=== PATIENT | male | born 1955 | race Caucasian/White ===

== ENCOUNTER 2019-10-26 09:05 | Outpatient (CLI) | payer MEDICARE, SELFPAY ==
[2019-10-26 09:29] LABS: Basophils Percent Auto 0.4 % (0.2-1.2); Eosinophils Absolute Auto 0.2 K/mm3 (0-0.3); Eosinophils Percent Auto 1.6 % (0-4.4); Hematocrit 41.8 % (42.0-52.0); Hemoglobin 14.1 g/dL (14.0-18.0); Immature Granulocyte Absolute 0.04 K/mm3 (0.00-0.031); Immature Granulocyte Percent A 0.4 % (0-0.5); Lymphocytes Absolute Auto 2.05 K/mm3 (0.9-3.2); Lymphocytes Percent Auto 19.7 % (18.3-44.2); Mean Corpuscular HGB Conc 33.7 g/dl (32-36); Mean Platelet Volume 8.7 fl (7.4-10.4); Monocytes Absolute Auto 0.8 K/mm3 (0.1-0.6); Monocytes Percent Auto 7.9 % (2.6-8.5); Neutrophils Absolute Auto 7.3 K/mm3 (1.3-6.7); Platelet Count Result 414 k/mm3 (150-375); Red Blood Count 4.86 M/mm3 (4.6-6.20); Red Cell Distribution Width 12.4 % (11.5-14.5); White Blood Count 10.4 K/mm3 (4.5-10.0)
[2019-10-26 09:38] LABS: Alanine Aminotransferase 17 U/L (4-50); Albumin Level 4.1 g/dL (3.5-5.1); Alkaline Phosphatase 65 U/L (38-126); Aspartate Amino Transferase 24 U/L (17-59); Bilirubin,Total 0.5 mg/dL (0.2-1.3); Blood Urea Nitrogen 8 mg/dL (9-20); Calcium 8.8 mg/dL (8.4-10.2); Carbon Dioxide 26 mmol/L (22-30); Chloride 91 mmol/L (98-107); Cholesterol 120 mg/dL (0-200); Estimated Glomerular Filt Rate > 60; Glucose 112 mg/dL (75-110); HDL Direct 40 mg/dL; Potassium 3.7 mmol/L (3.4-5.0); Sodium 132 mmol/L (137-145); Triglycerides 199 mg/dL (<150)
[2019-10-26 09:47] LABS: Hemoglobin A1C 5.8 % (<5.7)
[2019-10-26 09:49] LABS: LDL Cholesterol Direct 54 mg/dL
[2019-10-26 10:08] LABS: Prostate Specific Antigen 1.7 ng/mL (< OR = 4.0)
[2019-10-26 10:26] LABS: Creatinine Urine 236.6 mg/dL
[2019-10-26 10:30] LABS: MALB Creatinine Ratio 4.7 mg/g (0-30); Microalbumin Urine Random 11.1 mg/L (0-16.7)
== END 2019-10-26 09:06 | disposition home or self-care (01) ==
PROVIDERS: PCP Internal Medicine; Visit Provider Internal Medicine
DX: E78.2 Mixed hyperlipidemia (principal); Z12.5 Encounter for screening for malignant neoplasm of prostate; I10 Essential (primary) hypertension; R73.01 Impaired fasting glucose
CPT/HCPCS: 36415; 80053; 80061; 82043; 83036; 84153; 85025; G0103

== ENCOUNTER 2020-04-08 09:15 | Outpatient (CLI) | payer MEDICARE, SELFPAY ==
--- NOTE | ~2020-04-08 | CT_ITS ---
EXAMINATION: CT lung screening DATE: 04/08/2020 09:32 INDICATION: Z87.891 Personal history of nicotine dependence TECHNIQUE: Computed tomography (CT) of the chest was performed without intravenous contrast utilizing low-dose lung cancer screening protocol. Additional 3D reconstructions utilizing coronal maximum int ensity projection (MIP) were performed. Automated exposure control and iterative reconstruction techn [employer] were employed. The dose-length product was 116.42 mGy-cm. COMPARISON: 04/15/2019 FINDINGS: Mild to moderate paraseptal predominant emphysema. No interval change in a a few left upper lobe nodu les including a 4-5 mm pleural-based nodule at the posterior left apex and nearby 3 mm nodule along t he cephalad aspect of the major fissure both on image 32. Unchanged 4 mm pleural-based nodule at the junction of the lingula and left upper lobe on image 63. Tiny calcified nodule at the superior segmen t of the right lower lobe consistent with old granulomatous disease. No new or enlarging pulmonary no dules identified. No pneumonia, pulmonary edema, pleural effusion or pneumothorax. Heart size is norm al. No pericardial effusion. Atherosclerotic coronary artery calcifications. Thoracic aorta is normal in caliber. No pathologically enlarged thoracic lymphadenopathy. Visual is upper abdomen is unremark able. Moderate thoracic spondylosis. IMPRESSION: 1. No interval change in a 5 mm or smaller pulmonary nodules which are likely sequela of old granulom atous disease. Lung-RADS category 2: Benign appearance or behavior. Continue annual screening with no ncontrast low-dose chest CT in 12 months. 2. Mild to moderate emphysema. Reviewed, dictated and finalized at location A. IMPRESSION: 1. No interval change in a 5 mm or smaller pulmonary nodules which are likely s equela of old granulomatous disease. Lung-RADS category 2: Benign appearance or behavior. Continue annual screening with noncontrast low-dose chest CT in 12 m [facility]. 2. Mild to moderate emphysema.
== END 2020-04-08 09:16 | disposition home or self-care (01) ==
LOC: ANHIMG 09:18
PROVIDERS: PCP Internal Medicine; Visit Provider Internal Medicine Critical Care Medicine
DX: Z12.2 Encounter for screening for malignant neoplasm of respiratory organs (principal); Z87.891 Personal history of nicotine dependence; J43.9 Emphysema, unspecified
CPT/HCPCS: G0297

== ENCOUNTER 2020-06-04 08:43 | Outpatient (CLI) | payer MEDICARE, SELFPAY ==
[2020-06-04 09:16] LABS: Basophils Percent Auto 0.6 % (0.2-1.2); Eosinophils Absolute Auto 0.1 K/mm3 (0-0.3); Hematocrit 43.3 % (42.0-52.0); Hemoglobin 14.8 g/dL (14.0-18.0); Immature Granulocyte Absolute 0.01 K/mm3 (0.00-0.031); Immature Granulocyte Percent A 0.1 % (0-0.5); Lymphocytes Absolute Auto 2.37 K/mm3 (0.9-3.2); Lymphocytes Percent Auto 34.4 % (18.3-44.2); Mean Corpuscular HGB Conc 34.2 g/dl (32-36); Mean Corpuscular Hemoglobin 29.8 pg (26-34); Mean Corpuscular Volume 87.1 fl (80-100); Mean Platelet Volume 9.4 fl (7.4-10.4); Monocytes Absolute Auto 0.6 K/mm3 (0.1-0.6); Monocytes Percent Auto 8.6 % (2.6-8.5); Neutrophils Absolute Auto 3.7 K/mm3 (1.3-6.7); Neutrophils Percent Auto 54.3 % (45.5-73.1); Platelet Count Result 289 k/mm3 (150-375); Red Blood Count 4.97 M/mm3 (4.6-6.20); Red Cell Distribution Width 12.6 % (11.5-14.5); White Blood Count 6.9 K/mm3 (4.5-10.0)
[2020-06-04 09:32] LABS: Alanine Aminotransferase 16 U/L (4-50); Albumin Level 4.3 g/dL (3.5-5.1); Alkaline Phosphatase 51 U/L (38-126); Anion Gap 7 mmol/L (8-16); Aspartate Amino Transferase 29 U/L (17-59); Bilirubin,Total 0.8 mg/dL (0.2-1.3); Blood Urea Nitrogen 10 mg/dL (9-20); Calcium 8.9 mg/dL (8.4-10.2); Carbon Dioxide 31 mmol/L (22-30); Chloride 95 mmol/L (98-107); Cholesterol 119 mg/dL (0-200); Estimated Glomerular Filt Rate > 60; Glucose 101 mg/dL (75-110); HDL Direct 36 mg/dL; Sodium 133 mmol/L (137-145); Triglycerides 227 mg/dL (<150)
[2020-06-04 09:43] LABS: LDL Cholesterol Direct 53 mg/dL
[2020-06-04 09:46] LABS: Creatinine Urine 147.2 mg/dL
[2020-06-04 10:09] LABS: MALB Creatinine Ratio < 4.1 mg/g (0-30); Microalbumin Urine Random < 6.0 mg/L (0-16.7)
[2020-06-04 11:07] LABS: Hemoglobin A1C 5.6 % (<5.7)
== END 2020-06-04 08:44 | disposition home or self-care (01) ==
LOC: ANHLAB 08:47
PROVIDERS: PCP Internal Medicine; Visit Provider Internal Medicine
DX: R73.01 Impaired fasting glucose (principal); I10 Essential (primary) hypertension; E78.2 Mixed hyperlipidemia
CPT/HCPCS: 36415; 80053; 80061; 82043; 83036; 85025

== ENCOUNTER 2020-11-10 09:01 | Outpatient (CLI) | payer MEDICARE, SELFPAY | END 2020-11-10 09:02 | disposition home or self-care (01) | LOC: ANHCOVIDVC 09:01 | PROVIDERS: PCP Internal Medicine | DX: Z23 Encounter for immunization (principal) | CPT/HCPCS: 0001A; 91300 ==

== ENCOUNTER 2020-12-01 09:00 | Outpatient (CLI) | payer MEDICARE, SELFPAY | END 2020-12-01 09:01 | LOC: ANHCOVIDVC 09:00 | PROVIDERS: PCP Internal Medicine | DX: Z23 Encounter for immunization (principal) | CPT/HCPCS: 0002A; 91300 ==

== ENCOUNTER 2020-12-02 10:04 | Outpatient (CLI) | payer MEDICARE, SELFPAY ==
[2020-12-02 10:57] LABS: Hemoglobin A1C 5.5 % (<5.7)
[2020-12-02 11:03] LABS: Alanine Aminotransferase 12 U/L (4-50); Albumin Level 4.4 g/dL (3.5-5.1); Alkaline Phosphatase 54 U/L (38-126); Anion Gap 7 mmol/L (8-16); Aspartate Amino Transferase 25 U/L (17-59); Bilirubin,Total 0.8 mg/dL (0.2-1.3); Blood Urea Nitrogen 9 mg/dL (9-20); Calcium 8.9 mg/dL (8.4-10.2); Carbon Dioxide 29 mmol/L (22-30); Chloride 98 mmol/L (98-107); Cholesterol 131 mg/dL (0-200); Estimated Glomerular Filt Rate > 60; Glucose 95 mg/dL (75-110); HDL Direct 39 mg/dL; Sodium 134 mmol/L (137-145); Triglycerides 163 mg/dL (<150)
[2020-12-02 11:14] LABS: LDL Cholesterol Direct 61 mg/dL
[2020-12-02 11:34] LABS: MALB Creatinine Ratio 13.6 mg/g (0-30); Microalbumin Urine Random < 6.0 mg/L (0-16.7)
[2020-12-02 11:34] LABS: Prostate Specific Antigen 1.8 ng/mL (< OR = 4.0); Thyroid Stimulating Hormone 0.749 uIU/mL (0.465-4.680)
[2020-12-02 11:35] LABS: Vitamin D 25 Hydroxy 35.5 ng/mL
== END 2020-12-02 10:05 | disposition home or self-care (01) ==
PROVIDERS: PCP Internal Medicine; Visit Provider Internal Medicine
DX: E55.9 Vitamin D deficiency, unspecified (principal); E78.2 Mixed hyperlipidemia; R73.01 Impaired fasting glucose; Z72.0 Tobacco use; Z12.5 Encounter for screening for malignant neoplasm of prostate
CPT/HCPCS: 36415; 80053; 80061; 82043; 82306; 83036; 84153; 84443; G0103

== ENCOUNTER 2020-12-16 09:24 | Outpatient (CLI) | payer MEDICARE, SELFPAY ==
--- NOTE | ~2020-12-16 | US_ITS ---
EXAMINATION: US aorta [facility] DATE: 12/16/2020 09:55 INDICATION: Abdominal aortic aneurysm screening. TECHNIQUE: Grayscale, color Doppler, and pulsed Doppler images of the aorta and common iliac arteries were obtained. COMPARISON: Chest CT 04/08/2020 FINDINGS: The aorta is normal in caliber. The right common iliac artery is normal in caliber. The left common i liac artery is normal in caliber. IMPRESSION: 1. No abdominal aortic aneurysm. Reviewed, dictated and finalized at location B.
== END 2020-12-16 09:25 | disposition home or self-care (01) ==
PROVIDERS: PCP Internal Medicine; Visit Provider Internal Medicine
DX: Z72.0 Tobacco use (principal)
CPT/HCPCS: 76706

== ENCOUNTER 2021-05-18 07:58 | Outpatient (CLI) | payer MEDICARE, SELFPAY ==
--- NOTE | ~2021-05-18 | CT_ITS ---
EXAMINATION: CT lung screening DATE: 05/18/2021 08:18 INDICATION: Personal history of nicotine dependence TECHNIQUE: Computed tomography (CT) of the chest was performed without intravenous contrast. The dose -length product was 82.38 mGy-cm. Automated exposure control and iterative reconstruction technique w ere employed. COMPARISON: CT dated 04/08/2020 FINDINGS: Heart size is normal. No significant pleural or pericardial effusion. Mildly enlarged right paratracheal lymph node measures 1 cm, likely reactive. There is mild atherosclerosis. There is a lo w-density lesion in the liver, likely benign cyst or hemangioma. There are reticulonodular densities of the upper lobes superimposed on emphysema all nodules measure 4 mm or less. Largest nodule in the left upper lobe, image 70. No endobronchial lesions. There are calcified granulomas in the right lowe r lobe. Mild thoracic spondylosis with accentuated kyphosis. IMPRESSION: 1. Lung-RADS category 2: Benign appearance or behavior. Continue annual screening with noncontrast lo w-dose chest CT in 12 months. Reviewed, dictated and finalized at location A. IMPRESSION: 1. Lung-RADS category 2: Benign appearance or behavior. Continue annual screeni ng with noncontrast low-dose chest CT in 12 months.
== END 2021-05-18 07:59 | disposition home or self-care (01) ==
LOC: ANHIMG 08:00
PROVIDERS: PCP Internal Medicine; Visit Provider Internal Medicine Critical Care Medicine
DX: Z87.891 Personal history of nicotine dependence (principal)
CPT/HCPCS: 71271

== ENCOUNTER 2021-06-08 08:59 | Outpatient (CLI) | payer MEDICARE, SELFPAY ==
[2021-06-08 09:28] LABS: Hematocrit 42.8 % (42.0-52.0); Hemoglobin 14.9 g/dL (14.0-18.0); Mean Corpuscular HGB Conc 34.8 g/dl (32-36); Mean Corpuscular Hemoglobin 30.2 pg (26-34); Mean Corpuscular Volume 86.6 fl (80-100); Mean Platelet Volume 8.8 fl (7.4-10.4); Platelet Count Result 299 k/mm3 (150-375); Red Blood Count 4.94 M/mm3 (4.6-6.20); Red Cell Distribution Width 12.8 % (11.5-14.5); White Blood Count 8.1 K/mm3 (4.5-10.0)
[2021-06-08 10:17] LABS: Cholesterol 112 mg/dL (0-200); HDL Direct 39 mg/dL; Triglycerides 153 mg/dL (<150)
[2021-06-08 10:29] LABS: LDL Cholesterol Direct 50 mg/dL
[2021-06-08 10:41] LABS: Hemoglobin A1C 5.6 % (<5.7)
[2021-06-08 11:08] LABS: Creatinine Urine 270.7 mg/dL
[2021-06-08 11:13] LABS: MALB Creatinine Ratio 4.3 mg/g (0-30); Microalbumin Urine Random 11.6 mg/L (0-16.7)
== END 2021-06-08 09:00 | disposition home or self-care (01) ==
PROVIDERS: PCP Internal Medicine; Visit Provider Internal Medicine
DX: E78.2 Mixed hyperlipidemia (principal); F41.1 Generalized anxiety disorder; R73.01 Impaired fasting glucose
CPT/HCPCS: 36415; 80061; 82043; 83036; 85027

== ENCOUNTER → 2021-06-16 08:36 | Outpatient (CLI) | payer MEDICARE, SELFPAY ==
--- NOTE | ~2021-06-16 | XR_ITS ---
EXAMINATION: XR lumbar spine min 4V DATE: 06/16/2021 08:59 INDICATION: Unspecified osteoarthritis TECHNIQUE: Anteroposterior, lateral, and bilateral oblique views of the lumbar spine, and cone-down l ateral view of the lumbosacral junction were obtained. COMPARISON: 11/11/2013 FINDINGS: There has been interval anterior and posterior fusion at L5-S1. There are 4 mm of unchanged anterolisthesis of L5 on S1. There are 4 mm of stable retrolisthesis of L4 on L5. The vertebral body heights are maintained. There is moderate loss of intervertebral disc space height at L3-4 and L4-5 and mild loss of intervertebral disc space height at L2-3. Small degenerative osteophytes project fro m the anterior endplates of multiple vertebral bodies. Calcified atherosclerosis is noted. There is n o fracture. Mild osteoarthritis is noted in the hips. IMPRESSION: 1. Moderate lumbar spondylosis with interval anterior and posterior fusion at L5-S1 but otherwise no significant interval change. Reviewed, dictated and finalized at location A. IMPRESSION: 1. Moderate lumbar spondylosis with interval anterior and posterior fusion at L 5-S1 but otherwise no significant interval change.
--- NOTE | ~2021-06-16 | XR_ITS ---
EXAMINATION: XR hand LT min 3V, XR hand RT min 3V DATE: 06/16/2021 08:58 INDICATION: Unspecified osteoarthritis at the bilateral hands with joint pain at the left hand metaca rpophalangeal joints TECHNIQUE: 1. Posteroanterior, oblique and lateral views of the left hand were obtained. 2. Posteroanterior, oblique and lateral views of the right hand were obtained. COMPARISON: None. FINDINGS: Ulnar minus variance measuring 2 mm on the left and 3 mm on the right. Hyperextension at the bilatera l third and fourth proximal interphalangeal joints and mild boutonniere deformity at the right fifth digit with hyperextension at the fifth distal interphalangeal joint. There is a small likely fixation pin fragment at the proximal aspect of the right hamate. There is widening of the right scapholunate interval with likely secondary advanced osteoarthritis at the right radiocarpal joint with osteolysi s along the radial side of the lunate and the proximal pole of the scaphoid. There is proximal migrat ion of the lunate with moderate osteoarthritis at the right midcarpal joint. Additional mild to moder ate osteoarthritis at the right second and left third distal interphalangeal joints and mild osteoart hritis at the bilateral triscaphe, first carpometacarpal and multiple metacarpophalangeal and remaini ng interphalangeal joints. IMPRESSION: 1. 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 2. Additional mild to moderate polyarticular osteoarthritis and hyperflexion deformities of multiple digits as detailed above Reviewed, dictated and finalized at location A. IMPRESSION: 1. 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 2. Additional mild to moderate polyarticular osteoarthritis and hyperflexion de formities of multiple digits as detailed above
== END ==
PROVIDERS: PCP Internal Medicine; Visit Provider Internal Medicine
DX: M47.816 Spondylosis without myelopathy or radiculopathy, lumbar region (principal); Z98.1 Arthrodesis status; M47.817 Spondylosis without myelopathy or radiculopathy, lumbosacral region; M19.042 Primary osteoarthritis, left hand; M19.041 Primary osteoarthritis, right hand; M18.0 Bilateral primary osteoarthritis of first carpometacarpal joints
CPT/HCPCS: 72110; 73130

== ENCOUNTER 2021-06-30 08:57 | Outpatient (CLI) | payer MEDICARE, SELFPAY ==
[2021-06-30 10:21] LABS: Erythrocyte Sedimentation Rate 20 mm/hr (0-20)
[2021-06-30 11:29] LABS: Rheumatoid Factor < 8.6 IU/ML (<12)
[2021-07-03 11:11] LABS: CRP, High Sensitivity 6.6 mg/L (***)
[2021-07-04 09:15] LABS: Anti Cyclic Citrullinated Pept <16 Units (<20)
== END 2021-06-30 08:58 | disposition home or self-care (01) ==
LOC: ANHLAB 08:58
PROVIDERS: PCP Internal Medicine; Visit Provider Internal Medicine
DX: M13.80 Other specified arthritis, unspecified site (principal)
CPT/HCPCS: 36415; 85652; 86038; 86141; 86200; 86430

== ENCOUNTER 2021-09-16 09:21 | Outpatient (CLI) | payer MEDICARE, SELFPAY ==
--- NOTE | 2021-09-16 11:00 | NEURO_ITS ---
Impression: # Complains of pain and numbness of hands. # Mild left Carpal Tunnel Syndrome. # Evolving right Carpal Tunnel Syndrome. # Bilateral ulnar neuropathy across the elbows. # Needle/EMG exam mildly abnormal in 1st DI. Nerve Conduction Studies Anti Sensory Summary Table Stim Site NR Peak (ms) P-T Amp (?V) Site1 Site2 Delta-P (ms) Dist (cm) Rafael (m/s) Left Median Anti Sensory (2-3nd Digit) Wrist 3.8 83.3 Wrist 2-3nd Digit 3.8 14.0 37 Wrist 3.8 92.3 Wrist 2-3nd Digit 3.8 14.0 37 Right Median Anti Sensory (2-3nd Digit) Wrist 3.5 94.3 Wrist 2-3nd Digit 3.5 14.0 40 Wrist 3.4 90.4 Wrist 2-3nd Digit 3.5 14.0 40 Left Radial Anti Sensory (Base 1st Digit) Wrist 2.2 32.4 Wrist Base 1st Digit 2.2 0.0 Right Radial Anti Sensory (Base 1st Digit) Wrist 2.4 27.6 Wrist Base 1st Digit 2.4 0.0 Left Ulnar Anti Sensory (5th Digit) Wrist 3.2 65.5 Wrist 5th Digit 3.2 14.0 44 Right Ulnar Anti Sensory (5th Digit) Wrist 2.9 54.9 Wrist 5th Digit 2.9 14.0 48 Motor Summary Table Stim Site NR Onset (ms) O-P Amp (mV) Site1 Site2 Delta-0 (ms) Dist (cm) Rafael (m/s) Left Median Motor (Abd Poll Brev) Wrist 4.5 2.2 Elbow Wrist 4.8 26.0 54 Elbow 9.3 4.7 Right Median Motor (Abd Poll Brev) Wrist 4.1 7.4 Elbow Wrist 4.7 24.0 51 Elbow 8.8 4.1 Left Ulnar Motor (Abd Dig Minimi) Wrist 2.9 6.7 A Elbow Wrist 5.8 26.0 45 A Elbow 8.7 5.6 B Elbow Wrist 3.7 21.0 57 B Elbow 6.6 6.1 Right Ulnar Motor (Abd Dig Minimi) Wrist 3.1 7.0 A Elbow Wrist 5.9 24.0 41 A Elbow 9.0 6.4 B Elbow Wrist 3.5 18.0 51 B Elbow 6.6 8.3 F Wave Studies NR F-Lat (ms) L-R F-Lat (ms) Left Median (Mrkrs) (Abd Poll Brev) 29.59 0.70 Right Median (Mrkrs) (Abd Poll Brev) 30.29 0.70 Left Ulnar (Mrkrs) (Abd Dig Min) 30.28 0.58 Right Ulnar (Mrkrs) (Abd Dig Min) 30.86 0.58 EMG Side Muscle Nerve Root Ins Act Fibs Amp Dur Recrt Comment Right 1stDorInt Ulnar C8-T1 Nml Nml Nml >12ms Reduced Right Ext Indicis Radial (Post Int) C7-8 Nml Nml Nml Nml Nml Right Ext Digitorum Radial (Post Int) C7-8 Nml Nml Nml Nml Nml Right BrachioRad Radial C5-6 Nml Nml Nml Nml Nml Right PronatorTeres Median C6-7 Nml Nml Nml Nml Nml Right Abd Poll Brev Median C8-T1 Nml Nml Nml Nml Nml Left 1stDorInt Ulnar C8-T1 Nml Nml Nml >12ms Reduced Left Ext Indicis Radial (Post Int) C7-8 Nml Nml Nml Nml Nml Left Ext Digitorum Radial (Post Int) C7-8 Nml Nml Nml Nml Nml Left BrachioRad Radial C5-6 Nml Nml Nml Nml Nml Left PronatorTeres Median C6-7 Nml Nml Nml Nml Nml Left Abd Poll Brev Median C8-T1 Nml Nml Nml Nml Nml MTDD
== END 2021-09-16 09:22 | disposition home or self-care (01) ==
LOC: ANHNEURO 09:25
PROVIDERS: PCP Internal Medicine; Visit Provider Orthopaedic Surgery
DX: G56.03 Carpal tunnel syndrome, bilateral upper limbs (principal)
CPT/HCPCS: 95886; 95911

== ENCOUNTER 2021-12-21 08:55 | Outpatient (CLI) | payer MEDICARE, SELFPAY ==
[2021-12-21 09:28] LABS: Basophils Absolute Auto 0.1 K/mm3 (0.0-0.1); Basophils Percent Auto 0.6 % (0.2-1.2); Eosinophils Absolute Auto 0.1 K/mm3 (0-0.3); Eosinophils Percent Auto 1.4 % (0-4.4); Hematocrit 43.6 % (42.0-52.0); Hemoglobin 14.9 g/dL (14.0-18.0); Immature Granulocyte Absolute 0.02 K/mm3 (0.00-0.031); Immature Granulocyte Percent A 0.2 % (0-0.5); Lymphocytes Absolute Auto 1.57 K/mm3 (0.9-3.2); Mean Corpuscular HGB Conc 34.2 g/dl (32-36); Mean Corpuscular Hemoglobin 30.4 pg (26-34); Mean Platelet Volume 8.9 fl (7.4-10.4); Monocytes Absolute Auto 0.7 K/mm3 (0.1-0.6); Monocytes Percent Auto 7.7 % (2.6-8.5); Neutrophils Absolute Auto 6.3 K/mm3 (1.3-6.7); Neutrophils Percent Auto 72.1 % (45.5-73.1); Platelet Count Result 274 k/mm3 (150-375); Red Cell Distribution Width 13.1 % (11.5-14.5); White Blood Count 8.7 K/mm3 (4.5-10.0)
[2021-12-21 09:42] LABS: Alanine Aminotransferase 9 U/L (4-50); Albumin Level 4.3 g/dL (3.5-5.1); Alkaline Phosphatase 58 U/L (38-126); Anion Gap 6 mmol/L (8-16); Aspartate Amino Transferase 24 U/L (17-59); Bilirubin,Total 0.7 mg/dL (0.2-1.3); Blood Urea Nitrogen 9 mg/dL (9-20); Calcium 8.4 mg/dL (8.4-10.2); Carbon Dioxide 28 mmol/L (22-30); Chloride 97 mmol/L (98-107); Estimated Glomerular Filt Rate > 60; Glucose 103 mg/dL (65-110); Potassium 3.8 mmol/L (3.4-5.0); Sodium 131 mmol/L (137-145)
[2021-12-21 10:14] LABS: Thyroid Stimulating Hormone 0.996 uIU/mL (0.465-4.680)
== END 2021-12-21 08:56 | disposition home or self-care (01) ==
PROVIDERS: PCP Internal Medicine; Visit Provider Internal Medicine
DX: E78.2 Mixed hyperlipidemia (principal); F41.1 Generalized anxiety disorder; I10 Essential (primary) hypertension; J43.9 Emphysema, unspecified; M19.90 Unspecified osteoarthritis, unspecified site; Z12.5 Encounter for screening for malignant neoplasm of prostate
CPT/HCPCS: 36415; 80053; 82306; 84153; 84443; 85025; G0103

== ENCOUNTER 2022-05-19 12:31 | Outpatient (CLI) | payer MEDICARE, SELFPAY ==
--- NOTE | ~2022-05-19 | CT_ITS ---
EXAMINATION: CT lung screening DATE: 05/19/2022 13:08 INDICATION: Patient is a smoker. TECHNIQUE: Computed tomography (CT) of the chest was performed without intravenous contrast. The dose -length product was 91.05 mGy-cm. Automated exposure control and iterative reconstruction technique w ere employed. COMPARISON: CT dated 05/18/2020 FINDINGS: There is emphysema. No endobronchial lesions. No pneumothorax. There are borderline sized m ediastinal and right hilar lymph nodes, likely reactive. Small-moderate hiatal hernia. There are gall stones. There is a 1.7 cm liver cyst. Stable small bilateral pulmonary nodules measuring 4 mm or less . No new pulmonary nodules or masses. Moderate thoracic spondylosis. Stable reticulonodular densities are merely involving the upper lobes. IMPRESSION: 1. Lung-RADS category 2: Benign appearance or behavior. Continue annual screening with noncontrast lo w-dose chest CT in 12 months. Reviewed, dictated and finalized at location A. IMPRESSION: 1. Lung-RADS category 2: Benign appearance or behavior. Continue annual screeni ng with noncontrast low-dose chest CT in 12 months.
== END 2022-05-19 12:32 | disposition home or self-care (01) ==
PROVIDERS: PCP Internal Medicine; Visit Provider Physician Assistant
DX: Z12.2 Encounter for screening for malignant neoplasm of respiratory organs (principal); Z87.891 Personal history of nicotine dependence
CPT/HCPCS: 71271

== ENCOUNTER 2022-06-28 09:30 | Outpatient (CLI) | payer MEDICARE, SELFPAY ==
[2022-06-28 10:07] LABS: Alanine Aminotransferase 15 U/L (6-50); Albumin Level 4.3 g/dL (3.5-5.1); Alkaline Phosphatase 57 U/L (38-126); Anion Gap 9 mmol/L (8-16); Aspartate Amino Transferase 23 U/L (17-59); Bilirubin,Total 0.8 mg/dL (0.2-1.3); Blood Urea Nitrogen 12 mg/dL (9-20); Calcium 8.5 mg/dL (8.4-10.2); Carbon Dioxide 28 mmol/L (22-30); Chloride 94 mmol/L (98-107); Cholesterol 117 mg/dL (0-200); Estimated Glomerular Filt Rate > 60; Glucose 105 mg/dL (65-110); HDL Direct 37 mg/dL; Sodium 131 mmol/L (137-145); Triglycerides 189 mg/dL (<150)
[2022-06-28 10:18] LABS: LDL Cholesterol Direct 49 mg/dL
[2022-06-28 11:45] LABS: Vitamin D 25 Hydroxy 31.6 ng/mL
== END 2022-06-28 09:31 | disposition home or self-care (01) ==
PROVIDERS: PCP Internal Medicine; Visit Provider Nurse Practitioner
DX: E78.5 Hyperlipidemia, unspecified (principal); E55.9 Vitamin D deficiency, unspecified; R73.01 Impaired fasting glucose
CPT/HCPCS: 36415; 80053; 80061; 82306; 83036

== ENCOUNTER 2023-01-17 11:08 | Outpatient (CLI) | payer MEDICARE, SELFPAY ==
[2023-01-17 11:28] LABS: Hematocrit 45.1 % (42.0-52.0); Hemoglobin 15.3 g/dL (14.0-18.0); Mean Corpuscular HGB Conc 33.9 g/dl (32-36); Mean Corpuscular Hemoglobin 29.5 pg (26-34); Mean Corpuscular Volume 86.9 fl (80-100); Mean Platelet Volume 8.6 fl (7.4-10.4); Platelet Count Result 334 k/mm3 (150-375); Red Blood Count 5.19 M/mm3 (4.6-6.20); Red Cell Distribution Width 13.1 % (11.5-14.5); White Blood Count 9.9 K/mm3 (4.5-10.0)
[2023-01-17 11:36] LABS: Alanine Aminotransferase 18 U/L (6-50); Albumin Level 4.7 g/dL (3.5-5.1); Alkaline Phosphatase 63 U/L (38-126); Anion Gap 8 mmol/L (8-16); Aspartate Amino Transferase 25 U/L (17-59); Bilirubin,Total 0.9 mg/dL (0.2-1.3); Blood Urea Nitrogen 12 mg/dL (9-20); Calcium 8.7 mg/dL (8.4-10.2); Carbon Dioxide 31 mmol/L (22-30); Chloride 92 mmol/L (98-107); Cholesterol 104 mg/dL (0-200); Estimated Glomerular Filt Rate > 60; Glucose 106 mg/dL (65-110); HDL Direct 38 mg/dL; Hemoglobin A1C 5.8 % (<5.7); Sodium 131 mmol/L (137-145); Triglycerides 142 mg/dL (<150)
[2023-01-17 11:51] LABS: LDL Cholesterol Direct 44 mg/dL
[2023-01-17 12:08] LABS: Prostate Specific Antigen 2.7 ng/mL (< OR = 4.0)
== END 2023-01-17 11:09 | disposition home or self-care (01) ==
PROVIDERS: PCP Family Medicine; Visit Provider Family Medicine
DX: J43.9 Emphysema, unspecified (principal); I51.89 Other ill-defined heart diseases; R73.01 Impaired fasting glucose; F33.42 Major depressive disorder, recurrent, in full remission; F41.1 Generalized anxiety disorder; K21.9 Gastro-esophageal reflux disease without esophagitis; I10 Essential (primary) hypertension; M47.816 Spondylosis without myelopathy or radiculopathy, lumbar region; Z72.0 Tobacco use; Z12.5 Encounter for screening for malignant neoplasm of prostate
CPT/HCPCS: 36415; 80053; 80061; 83036; 84153; 85027; G0103

== ENCOUNTER 2023-05-22 09:34 | Outpatient (CLI) | payer MEDICARE, SELFPAY ==
--- NOTE | ~2023-05-22 | CT_ITS ---
EXAMINATION: CT lung screening DATE: 05/22/2023 09:58 INDICATION: Personal history of nicotine dependence. TECHNIQUE: Computed tomography (CT) of the chest was performed without intravenous contrast. The dose -length product was 78.80 mGy-cm. Automated exposure control and iterative reconstruction technique w ere employed. COMPARISON: CT dated 05/19/2022 FINDINGS: No significant pleural or pericardial effusion. Stable borderline size mediastinal lymph no owen, likely reactive. There is emphysema. No endobronchial lesions. No pneumothorax. No focal airspac e consolidation. Stable pulmonary nodules measuring 4 mm or less. Largest nodule in the left upper lo be, image 56. No new pulmonary nodules. Moderate thoracic spondylosis. No focal lytic or blastic lesi ons. There is atherosclerosis of the aorta and coronary arteries. Heart size is normal. Stable liver cysts. There is hiatal hernia. IMPRESSION: 1. Lung-RADS category 2: Benign appearance or behavior. Continue annual screening with noncontrast lo w-dose chest CT in 12 months. Reviewed, dictated and finalized at location B. IMPRESSION: 1. Lung-RADS category 2: Benign appearance or behavior. Continue annual screeni ng with noncontrast low-dose chest CT in 12 months.
== END 2023-05-22 09:35 | disposition home or self-care (01) ==
LOC: ANHIMG 09:36
PROVIDERS: PCP Family Medicine; Visit Provider Physician Assistant
DX: Z12.2 Encounter for screening for malignant neoplasm of respiratory organs (principal); Z87.891 Personal history of nicotine dependence
CPT/HCPCS: 71271

== ENCOUNTER 2023-06-01 09:45 | Outpatient (CLI) | payer MEDICARE, SELFPAY ==
--- NOTE | ~2023-06-01 | US_ITS ---
EXAMINATION: US scrotum doppler DATE: 06/01/2023 11:03 INDICATION: Hydrocele, unspecified. TECHNIQUE: Grayscale and Doppler ultrasound images of the testes were obtained. COMPARISON: None. FINDINGS: The right testis measures 4.7 x 1.1 x 2.8 cm. The left testis measures 3.1 x 1.5 x 2.5 cm. The left testis demonstrates heterogeneous echogenicity. There is normal vascular flow to both testes . The epididymides are not visualized. There is a large right hydrocele measuring 13.5 x 7.6 x 10.1 c m IMPRESSION: 1. Large right hydrocele. 2. Left testis smaller than the right with heterogeneous echogenicity, which may be from old injury. Reviewed, dictated and finalized at location E. IMPRESSION: 1. Large right hydrocele. 2. Left testis smaller than the right with heterogeneous echogenicity, which ma y be from old injury.
== END 2023-06-01 09:46 | disposition home or self-care (01) ==
PROVIDERS: PCP Family Medicine; Visit Provider Nurse Practitioner Family
DX: N50.89 Other specified disorders of the male genital organs (principal); N43.3 Hydrocele, unspecified
CPT/HCPCS: 76870; 93976

== ENCOUNTER 2023-07-26 11:22 | Outpatient (CLI) | payer MEDICARE, SELFPAY ==
[2023-07-26 11:54] LABS: Alanine Aminotransferase 12 U/L (6-50); Albumin Level 4.5 g/dL (3.5-5.1); Alkaline Phosphatase 63 U/L (38-126); Anion Gap 11 mmol/L (8-16); Aspartate Amino Transferase 23 U/L (17-59); Bilirubin,Total 0.7 mg/dL (0.2-1.3); Blood Urea Nitrogen 15 mg/dL (9-20); Calcium 8.8 mg/dL (8.4-10.2); Carbon Dioxide 26 mmol/L (22-30); Chloride 99 mmol/L (98-107); Estimated Glomerular Filt Rate > 60; Glucose 106 mg/dL (65-110); Potassium 3.7 mmol/L (3.4-5.0); Sodium 136 mmol/L (137-145)
[2023-07-26 11:55] LABS: Hemoglobin A1C 5.5 % (<5.7)
== END 2023-07-26 11:23 | disposition home or self-care (01) ==
PROVIDERS: PCP Family Medicine; Visit Provider Family Medicine
DX: E87.1 Hypo-osmolality and hyponatremia (principal); R73.01 Impaired fasting glucose; I10 Essential (primary) hypertension
CPT/HCPCS: 36415; 80053; 83036

== ENCOUNTER 2023-12-28 14:06 | Outpatient (CLI) | payer MEDICARE, SELFPAY ==
[2023-12-28 14:34] LABS: Hematocrit 43.2 % (42.0-52.0); Hemoglobin 14.1 g/dL (14.0-18.0); Mean Corpuscular HGB Conc 32.6 g/dl (32-36); Mean Corpuscular Hemoglobin 28.1 pg (26-34); Mean Corpuscular Volume 86.1 fl (80-100); Mean Platelet Volume 9.1 fl (7.4-10.4); Platelet Count Result 282 k/mm3 (150-375); Red Blood Count 5.02 M/mm3 (4.6-6.20); Red Cell Distribution Width 14.1 % (11.5-14.5); White Blood Count 10.4 K/mm3 (4.5-10.0)
[2023-12-28 14:45] LABS: Alanine Aminotransferase 11 U/L (6-50); Albumin Level 4.4 g/dL (3.5-5.1); Alkaline Phosphatase 73 U/L (38-126); Anion Gap 6 mmol/L (4-12); Aspartate Amino Transferase 22 U/L (17-59); Bilirubin,Total 1.1 mg/dL (0.2-1.3); Blood Urea Nitrogen 11 mg/dL (9-20); Calcium 8.8 mg/dL (8.4-10.2); Carbon Dioxide 27 mmol/L (22-30); Chloride 101 mmol/L (98-107); Cholesterol 117 mg/dL (0-200); Estimated Glomerular Filt Rate > 60; Glucose 98 mg/dL (65-110); HDL Direct 44 mg/dL; Potassium 3.9 mmol/L (3.4-5.0); Sodium 134 mmol/L (137-145); Triglycerides 101 mg/dL (<150)
[2023-12-28 14:47] LABS: Hemoglobin A1C 5.5 % (<5.7)
[2023-12-28 14:49] LABS: Urine Cotinine NEGATIVE
[2023-12-28 14:56] LABS: LDL Cholesterol Direct 65 mg/dL
== END 2023-12-28 14:07 | disposition home or self-care (01) ==
LOC: ANHLAB 14:09
PROVIDERS: PCP Family Medicine; Visit Provider Family Medicine
DX: E55.9 Vitamin D deficiency, unspecified (principal); E78.2 Mixed hyperlipidemia; E87.1 Hypo-osmolality and hyponatremia; F33.42 Major depressive disorder, recurrent, in full remission; F41.1 Generalized anxiety disorder; I10 Essential (primary) hypertension; J43.9 Emphysema, unspecified; K21.9 Gastro-esophageal reflux disease without esophagitis; K40.90 Unilateral inguinal hernia, without obstruction or gangrene, not specified as recurrent; R73.01 Impaired fasting glucose; M47.816 Spondylosis without myelopathy or radiculopathy, lumbar region; Z96.659 Presence of unspecified artificial knee joint
CPT/HCPCS: 80053; 80061; 80307; 82306; 83036; 85027

== ENCOUNTER 2024-02-21 11:00 | Outpatient (CLI) | payer MEDICARE, SELFPAY ==
[2024-02-21 11:46] LABS: Hematocrit 41.2 % (42.0-52.0); Hemoglobin 13.3 g/dL (14.0-18.0); Mean Corpuscular HGB Conc 32.3 g/dl (32-36); Mean Corpuscular Hemoglobin 27.7 pg (26-34); Mean Corpuscular Volume 85.8 fl (80-100); Mean Platelet Volume 9.1 fl (7.4-10.4); Platelet Count Result 410 k/mm3 (150-375); White Blood Count 9.1 K/mm3 (4.5-10.0)
[2024-02-21 12:00] LABS: Anion Gap 7 mmol/L (4-12); Blood Urea Nitrogen 12 mg/dL (9-20); Calcium 8.7 mg/dL (8.4-10.2); Carbon Dioxide 28 mmol/L (22-30); Chloride 100 mmol/L (98-107); Estimated Glomerular Filt Rate > 60; Glucose 102 mg/dL (65-110); Potassium 3.5 mmol/L (3.4-5.0); Sodium 135 mmol/L (137-145)
== END 2024-02-21 11:01 | disposition home or self-care (01) ==
LOC: ANHLAB 11:02
PROVIDERS: PCP Family Medicine; Visit Provider Nurse Practitioner Family
DX: Z01.818 Encounter for other preprocedural examination (principal)
CPT/HCPCS: 36415; 80048; 85027

== ENCOUNTER 2024-06-12 09:41 | Outpatient (CLI) | payer MEDICARE, SELFPAY ==
--- NOTE | ~2024-06-12 | CT_ITS ---
CT Scan of the Chest without Contrast: Clinical Indication: Lung cancer screening, nicotine dependence Technique: Contiguous sections were acquired throughout the chest without intravenous contrast. Dose reduction technique was used on this scan by utilizing automated exposure control and iterative recon struction technique. The dose-length product (DLP) was 89.81 mGy-cm. COMPARISON: 05/22/2023 Findings: There is no evidence of any significant mediastinal, hilar or axillary lymphadenopathy. Extensive cor onary artery calcification present. There is no evidence of pleural or pericardial effusion. Moderate emphysema present. Calcified right lower lobe granuloma present. Stable 3 mm left upper lobe pulmonary nodule (axial image 63). Images through the upper abdomen reveal small calcified gallstones. Degenerative spondylosis of the t horacic spine noted. Impression: Lung RADS 2: Benign appearance. [address] advised. Moderate emphysema. Reviewed, dictated and finalized at [facility]. Impression: Lung RADS 2: Benign appearance. [address] advised. Moderate emphysema.
== END 2024-06-12 09:42 | disposition home or self-care (01) ==
LOC: ANHIMG 09:49
PROVIDERS: PCP Family Medicine; Visit Provider Nurse Practitioner Family
DX: Z12.2 Encounter for screening for malignant neoplasm of respiratory organs (principal); Z87.891 Personal history of nicotine dependence; J43.9 Emphysema, unspecified
CPT/HCPCS: 71271

== ENCOUNTER 2024-10-23 12:19 | Outpatient (CLI) | payer MEDICARE, SELFPAY ==
[2024-10-23 12:44] LABS: Basophils Absolute Auto 0.1 K/mm3 (0.0-0.1); Basophils Percent Auto 0.7 % (0.2-1.2); Eosinophils Absolute Auto 0.1 K/mm3 (0-0.3); Eosinophils Percent Auto 1.3 % (0-4.4); Hematocrit 46.1 % (42.0-52.0); Hemoglobin 15.2 g/dL (14.0-18.0); Immature Granulocyte Absolute 0.02 K/mm3 (0.00-0.031); Immature Granulocyte Percent A 0.2 % (0-0.5); Lymphocytes Absolute Auto 1.98 K/mm3 (0.9-3.2); Lymphocytes Percent Auto 21.5 % (18.3-44.2); Mean Corpuscular Hemoglobin 29.9 pg (26-34); Mean Corpuscular Volume 90.7 fl (80-100); Mean Platelet Volume 8.8 fl (7.4-10.4); Monocytes Absolute Auto 0.7 K/mm3 (0.1-0.6); Monocytes Percent Auto 7.3 % (2.6-8.5); Neutrophils Absolute Auto 6.4 K/mm3 (1.3-6.7); Platelet Count Result 325 k/mm3 (150-375); Red Blood Count 5.08 M/mm3 (4.6-6.20); Red Cell Distribution Width 14.6 % (11.5-14.5); White Blood Count 9.2 K/mm3 (4.5-10.0)
[2024-10-23 13:00] LABS: Alanine Aminotransferase 18 U/L (6-50); Albumin Level 4.4 g/dL (3.5-5.1); Alkaline Phosphatase 73 U/L (38-126); Anion Gap 12 mmol/L (4-12); Aspartate Amino Transferase 27 U/L (17-59); Bilirubin,Total 0.8 mg/dL (0.2-1.3); Blood Urea Nitrogen 11 mg/dL (9-20); Calcium 9.3 mg/dL (8.4-10.2); Carbon Dioxide 25 mmol/L (22-30); Chloride 101 mmol/L (98-107); Estimated Glomerular Filt Rate > 60; Glucose 97 mg/dL (65-110); Sodium 138 mmol/L (137-145)
[2024-10-23 13:30] LABS: Prostate Specific Antigen 2.5 ng/mL (< OR = 4.0)
--- OUTSIDE RECORDS SUMMARY | 2024-10-23 13:54 | XMS_ITS | CONTINUITY OF CARE DOCUMENT ---
Author Name jonas mcdaniel Address Unknown Organization [facility] Address [address] [place] [address] Phone [phone] Care Team Providers Care Ship Scaler Name Role Phone Hans Patel MD Unavailable [phone] TEMO TOBAR, MEGHANA Goel Unavailable [phone] INSURANCE PROVIDERS Payer name Policy type / Coverage type [place] [employer] ID [employer] MEDICARE COMPLETE POS HMO Other 97 [id number]
[2024-10-23 14:01] LABS: Vitamin D 25 Hydroxy 95.7 ng/mL
[2024-10-23 14:03] LABS: Hemoglobin A1C 5.6 % (<5.7)
== END 2024-10-23 12:20 | disposition home or self-care (01) ==
PROVIDERS: PCP Family Medicine; Visit Provider Family Medicine
DX: Z12.5 Encounter for screening for malignant neoplasm of prostate (principal); I10 Essential (primary) hypertension; E78.2 Mixed hyperlipidemia; J43.9 Emphysema, unspecified; E55.9 Vitamin D deficiency, unspecified; R73.01 Impaired fasting glucose; E66.9 Obesity, unspecified; R91.8 Other nonspecific abnormal finding of lung field; F17.200 Nicotine dependence, unspecified, uncomplicated; Z79.899 Other long term (current) drug therapy
CPT/HCPCS: 36415; 80053; 82306; 83036; 84153; 85025; G0103